=== PATIENT | female | born 1985 | race Caucasian/White ===

== ENCOUNTER 2017-12-08 22:33 | Inpatient (IN) | payer MEDICAID ==
[2017-12-08] MEDS ORDERED: LACTATED RINGER'S 1,000 ML IV (23:45)
[2017-12-09] MEDS ORDERED: LIDOCAINE 1% (MPF) 30 ML INJ INJ
[2017-12-09] MEDS ORDERED: BUTORPHANOL 2 MG INJ IV
[2017-12-09] MEDS: LACTATED RINGER'S 1,000 ML IV ×3 (00:19→05:11)
[2017-12-09 00:44] LABS: ADD MAN DIFF? NO
[2017-12-09 00:46] LABS: WHITE BLOOD COUNT 7.3 10^3/ul (4.8-10.8)
[2017-12-09 00:46] LABS: ABNORMAL IP MESSAGE 1; BASOPHILS % 0.1 % (0.0-2.0); EOSINOPHILS % 0.1 % (0.0-7.0); HEMATOCRIT 35.7 % (37.0-47.0); HEMOGLOBIN 12.4 g/dl (12.0-16.0); LYMPHOCYTES # 0.6 10^3/ul (0.8-2.9); LYMPHOCYTES % 7.8 % (15.0-51.0); MEAN CORPUSCULAR HEMOGLOBIN 30.3 pg (29.0-33.0); MEAN CORPUSCULAR HGB CONC 34.7 g/dl (32.0-37.0); MEAN CORPUSCULAR VOLUME 87.3 fl (82.0-101.0); MEAN PLATELET VOLUME 10.6 fl (7.4-10.4); MONOCYTE # 0.3 10^3/ul (0.3-0.9); MONOCYTES % 4.3 % (0.0-11.0); NEUTROPHIL # 6.4 10^3/ul (1.6-7.5); NEUTROPHILS % 87.4 % (39.0-77.0); PLATELET COUNT 243 10^3/UL (140-415); RED BLOOD COUNT 4.09 10^6/ul (4.20-5.40); RED CELL DISTRIBUTION WIDTH 14.1 % (11.5-14.5)
[2017-12-09 01:05] LABS: INR 0.93; PARTIAL THROMBOPLASTIN TIME 28.1 Sec (25.0-35.0); PROTIME 12.6 Sec (11.9-14.9)
[2017-12-09 01:06] LABS: ALANINE AMINOTRANSFERASE 28 IU/L (13-69); ALBUMIN 3.3 g/dl (3.3-4.9); ALBUMIN/GLOBULIN RATIO 0.97; ALKALINE PHOSPHATASE 131 IU/L (42-121); ANION GAP 16 (8-16); ASPARTATE AMINO TRANSFERASE 22 IU/L (15-46); BILIRUBIN,INDIRECT 0.7 mg/dl (0-1.1); BILIRUBIN,TOTAL 0.7 mg/dl (0.2-1.3); BLOOD UREA NITROGEN 8 mg/dl (7-20); CALCIUM 8.6 mg/dl (8.4-10.2); CARBON DIOXIDE 21 mmol/L (21-31); CHLORIDE 106 mmol/L (97-110); CREATININE 0.44 mg/dl (0.44-1.00); GLUCOSE 95 mg/dl (70-220); POTASSIUM 3.6 mmol/L (3.5-5.1); SODIUM 139 mmol/L (135-144); TOTAL PROTEIN 6.7 g/dl (6.1-8.1)
[2017-12-09 01:16] LABS: POSITIVE DIFF @See below
[2017-12-09 01:37] LABS: HEPATITIS B SURFACE ANTIGEN NEGATIVE (NEGATIVE)
[2017-12-09] MEDS: OXYTOCIN 30 UNITS/LR 500 ML IV ×3 (05:29→11:43)
[2017-12-09] MEDS: IBUPROFEN 600 MG TAB PO ×4 (06:05→23:36)
[2017-12-09] MEDS: LACTATED RINGER'S 1,000 ML IV* ×2 (09:19→17:19)
[2017-12-09] MEDS ORDERED: ZOLPIDEM 5 MG TAB PO (09:30)
[2017-12-09] MEDS ORDERED: OXYTOCIN 30 UNITS/LR 500 ML IV ×2 (09:30)
[2017-12-09] MEDS ORDERED: OXYCODONE/ASPIRIN (4.88/325) TAB PO ×2 (09:30)
[2017-12-09] MEDS ORDERED: CARBOPROST 250 MCG INJ IM ×2 (09:30)
[2017-12-09] MEDS ORDERED: MISOPROSTOL 200 MCG TAB PR ×2 (09:30)
[2017-12-09] MEDS ORDERED: METHYLERGONOVINE 0.2 MG INJ IM ×2 (09:30)
[2017-12-09] MEDS: BENZOCAINE 20% 56 ML SPRAY TOP (11:47)
[2017-12-09] MEDS: WITCH HAZEL/GLYCERIN PAD PR (11:47)
[2017-12-09] MEDS: LANOLIN 7 GM TUBE TOP (11:48)
[2017-12-09] MEDS: SENNA/DOCUSATE NA (8.6MG/50MG) TAB PO (21:00)
[2017-12-09 22:35] LABS: RAPID PLASMA REAGIN NONREACTIVE (NR)
[2017-12-10] MEDS: LACTATED RINGER'S 1,000 ML IV* (01:19)
[2017-12-10] MEDS: IBUPROFEN 600 MG TAB PO ×3 (05:38→17:49)
[2017-12-10 08:41] LABS: ADD MAN DIFF? NO
[2017-12-10 08:43] LABS: WHITE BLOOD COUNT 7.2 10^3/ul (4.8-10.8)
[2017-12-10 08:43] LABS: BASOPHILS % 0.3 % (0.0-2.0); EOSINOPHILS # 0.1 10^3/ul (0.0-0.5); HEMATOCRIT 34.1 % (37.0-47.0); HEMOGLOBIN 11.2 g/dl (12.0-16.0); LYMPHOCYTES # 1.5 10^3/ul (0.8-2.9); MEAN CORPUSCULAR HEMOGLOBIN 29.4 pg (29.0-33.0); MEAN CORPUSCULAR HGB CONC 32.8 g/dl (32.0-37.0); MEAN CORPUSCULAR VOLUME 89.5 fl (82.0-101.0); MEAN PLATELET VOLUME 10.4 fl (7.4-10.4); MONOCYTE # 0.7 10^3/ul (0.3-0.9); MONOCYTES % 10.3 % (0.0-11.0); NEUTROPHIL # 4.8 10^3/ul (1.6-7.5); PLATELET COUNT 227 10^3/UL (140-415); RED BLOOD COUNT 3.81 10^6/ul (4.20-5.40); RED CELL DISTRIBUTION WIDTH 14.6 % (11.5-14.5)
[2017-12-10] MEDS: SENNA/DOCUSATE NA (8.6MG/50MG) TAB PO ×2 (09:41→21:45)
[2017-12-11] MEDS: IBUPROFEN 600 MG TAB PO ×3 (00:20→11:33)
[2017-12-11] MEDS: DIPHTH/TET/ACEL PERTUSS (ADULT) 0.5 ML VIAL IM* (07:24)
[2017-12-11] MEDS: SENNA/DOCUSATE NA (8.6MG/50MG) TAB PO ×2 (08:52→11:22)
[2017-12-11] MEDS: WITCH HAZEL/GLYCERIN PAD PR (11:40)
[2017-12-11] MEDS: BENZOCAINE 20% 56 ML SPRAY TOP (11:40)
[2017-12-11] MEDS: LANOLIN 7 GM TUBE TOP (11:41)
== END 2017-12-11 13:30 | disposition home or self-care (01) | DRG 775 ==
LOC: OBT 22:33 → L-D 22:34 → PP1 12-09 09:06
PROVIDERS: Obstetrics & Gynecology
PROC: 4A1HXCZ Monitoring of Products of Conception, Cardiac Rate, External Approach (ICD-10-PCS; 2017-12-08)
PROC: 10E0XZZ Delivery of Products of Conception, External Approach (ICD-10-PCS; principal; 2017-12-09)
PROC: 0HQ9XZZ Repair Perineum Skin, External Approach (ICD-10-PCS; 2017-12-09)
DX: O48.0 Post-term pregnancy (principal); O70.0 First degree perineal laceration during delivery; Z37.0 Single live birth; Z3A.40 40 weeks gestation of pregnancy
CPT/HCPCS: 80053; 85025; 85610; 85730; 86592; 86850; 86900; 86901; 87340